=== PATIENT | female | born 1995 | race Hispanic/Latino ===

== ENCOUNTER 2018-12-23 05:36 | Inpatient (IN) | payer SELFPAY ==
[2018-12-23] MEDS ORDERED: Ringers Lactate 1,000 ML IV PRN (06:34)
[2018-12-23] MEDS ORDERED: CEFAZOLIN/SWI 2gm 2 GM/20 ML SYR ONE (06:40)
[2018-12-23] MEDS ORDERED: Ringers Lactate 1,000 ML IV SCH (07:00)
[2018-12-23] MEDS ORDERED: CEFAZOLIN 2 GM in NA CHLORIDE 0.9% 100 ML IVPB SCH (07:00)
[2018-12-23] MEDS ORDERED: METOCLOPRAMIDE 10 MG/2mL INJ ONE (07:01)
[2018-12-23] MEDS ORDERED: FAMOTIDINE 20 MG/2 ML VIAL IV ONE (07:01)
[2018-12-23] MEDS ORDERED: NA CIT/CITRIC AC 30 ML ORAL UDC ONE (07:01)
[2018-12-23] MEDS ORDERED: CARBOPROST TROME 250 MCG/ML IM ONE (07:03)
[2018-12-23] MEDS ORDERED: METHYLERGONOVINE 0.2MG/ML AMP IM ONE (07:03)
[2018-12-23] MEDS ORDERED: D10W 250 ML IV ONE (07:11)
[2018-12-23 07:16] LABS: Absolute Lymphocytes (CBC) 1.8 K/uL (0.7-4.9); Basophils % 0.1 % (0-1.3); Hematocrit 31.8 % (36.0-45.0); Lymphocytes % 20.3 % (15.3-44.8); MPV 8.3 fL (7.6-11.3); RBC Red Blood Cell Count 4.21 M/uL (3.86-4.86)
[2018-12-23] MEDS ORDERED: MORPHINE SULFATE/PF 1 MG/ML (10 ML AMP) ONE (07:17)
[2018-12-23] MEDS ORDERED: OXYTOCIN 10 UNIT/ML ML IV ONE ×2 (07:20→08:10)
[2018-12-23] MEDS ORDERED: EPHEDRINE SULF 50 MG/ML VIAL ONE (07:36)
[2018-12-23] MEDS ORDERED: Phenylephrine HCl 10 MG/ML 1 ML VIAL ONE (07:58)
[2018-12-23] MEDS ORDERED: DIPHENHYDRAMINE 25 MG TAB/CAP PO PRN (08:24)
[2018-12-23] MEDS ORDERED: BISACODYL 10 MG RECTAL SUPP RECT PRN (08:24)
[2018-12-23] MEDS ORDERED: ONDANSETRON 4 MG/2 ML VIAL IV PRN (08:24)
[2018-12-23] MEDS ORDERED: KETOROLAC 30 MG/ML INJ IM PRN (08:24)
[2018-12-23] MEDS ORDERED: ACETAMINOPHEN 500 MG TAB PO PRN ×2 (08:24)
[2018-12-23] MEDS ORDERED: ONDANSETRON 4 MG (ODT) TAB PO PRN (08:24)
[2018-12-23] MEDS ORDERED: Oxycodone HCl/Acetaminophen 1 TAB TAB PO PRN (08:24)
[2018-12-23] MEDS: OXYTOCIN/LR 20 UNIT/1,000 ML BAG IV SCH ×2 (09:00→20:00)
--- NOTE | 2018-12-23 09:09 | RAD REPORT ---
EXAM DESCRIPTION: RAD - Abdomen 1 View (KUB) - 12/23/2018 6:51 am CLINICAL HISTORY: FINDINGS: The head is present within the left lower abdomen/upper pelvis The legs are present within the right lower abdomen/upper pelvis. Neither is clearly the presenting part. The spine extends left right within the mid abdomen. The presentation is considered transverse
[2018-12-23] MEDS ORDERED: CEFAZOLIN/SWI 2gm 2 GM/20 ML SYR IV ONE (09:38)
[2018-12-23] MEDS: KETOROLAC 30 MG/ML INJ IV PRN ×2 (10:45→18:01)
[2018-12-23] MEDS ORDERED: Ringers Lactate 1,000 ML IV ONE ×4 (11:10→16:30)
[2018-12-23 11:14] VITALS: BMI 32.5
[2018-12-23] MEDS: D5LR 1,000 ML with OXYTOCIN 20 UNIT IV SCH ×2 (14:33)
[2018-12-23] MEDS ORDERED: PROMETHAZINE 25 MG/ML VIAL ONE (14:44)
[2018-12-23] MEDS ORDERED: PROMETHAZINE HCL 50 MG/ML AMP IM ONE (17:00)
[2018-12-24] MEDS: Oxycodone HCl/Acetaminophen 1 TAB TAB PO PRN ×2 (00:03→11:12)
[2018-12-24] MEDS: D5LR 1,000 ML with OXYTOCIN 20 UNIT IV SCH ×2 (03:35)
[2018-12-24] MEDS: KETOROLAC 30 MG/ML INJ IV PRN (06:35)
[2018-12-24] MEDS ORDERED: MAGNESIUM HYDROXIDE 8% 30 ML PO PRN (08:24)
--- NOTE | 2018-12-24 08:24 | OP ---
Surgeon: Louis Osorio MD [employer] Worker: Dr. Christopher Tomlinson. Anesthesiologist: Dr. Holliday. Indications: A 23-year-old 3, para 2, 33 weeks 5 days. Patient in the [place] came into our institution in advanced labor, protruding membranes 8.5 to 9 cm. X-ray showed baby in transverse lie . Full discussion with patient and family. They decided to proceed with section. Pediatrics: Dr. Tobias. [facility] transport team, which is available within minutes after of the ba by. Full preoperative counseling concerning procedure and possible complications including infection, blo od loss, anesthetic complications, injury to bladder, bowel, or ureter, postoperative complications, clots in legs, pneumonia. The patient knows fully well this does not constitute all the possible pro blems that could occur during or following surgery. Description Of Procedure: After adequate spinal block anesthesia, a time-out was performed. A Pfann enstiel incision was created. The incision was carried to the fascia. The fascia was incised and in cision carried transversely bilaterally. Anterior and posterior fascial planes were developed with b oth blunt and sharp dissection. Rectus muscle was . Peritoneum elevated and entered. Low transverse bladder flap developed with Metzenbaum scissors. Low transverse uterine incision created. The baby's head was on the left, the posterior portion to the right. The feet were grasped, but it was impossible to remove the baby from this position. Therefore, a vertical incision approximately 4-5 cm was created in the midportion of the upper transverse incision. At this point, a 5-pound 6-ou nce male was delivered. Apgars 3, 7, and 9. Cord blood was obtained. Placenta removed manua lly. Uterus cleared of clot and blood and exteriorized. Vertical defect closed with a running kana d stitch of 1 chromic followed by a single [id number] stitch for complete hemostasis. The trans verse incision was closed with 1 chromic running locked stitch. Estimated blood loss 800 cc during t he procedure. Gutters cleared of clot and blood. Uterus replaced in the peritoneal cavity. Suture lines checked, all intact, no further bleeding. Muscles were closed with 0 Vicryl four interrupted s utures. The fascia was closed with 1 Vicryl running from either angle to the midline. Subcutaneous tissue closed with 2-0 plain. Absorbable sadie placed and then metal sadie. Patient was given 2 g of Ancef for prophylaxis. Tolerated all procedures well. Transferred back to her room in good co ndition. Final Diagnosis: Intrauterine gestation 33 weeks 5 days, premature labor, transverse lie, primary ce sarean section, spinal block anesthesia. MARGIE/EDMOND Voice ID: [id number] Report ID: [id number]
--- NOTE | 2018-12-24 08:24 | PREOPHP ---
Date of Admission: 12/23/2018 A 23-year-old, 3, para 2, followed in the [place], 33 weeks and 5 days by best estimates. Hazel lozano was told she had polyhydramnios, came into our institution reporting contractions. She has 8 to 9 cm bulging bag of hernández, but the presenting part cannot be determined. FHTs look normal. Vital signs are all good we are getting a flatplate of the abdomen and IV has been started. She is A posit jonny. Tdap has been given. Rubella immune. No other labs available on her record. I have counseled the patient if the baby is breech or transverse we will need to do a if we have t jayce. She knows if the bag of water breaks, things would become more difficult especially if we get a prolapsed cord. The patient's seemed to understand the situation and seemed to be amenable to whatever treatment we suggest. We will draw all drop in labs, type and screen the patient. IV caicedo s been started and we will start the process of moving towards delivery. MARGIE/EDMOND Voice ID: [id number]
--- NOTE | 2018-12-24 08:28 | PN ---
Postoperatively, patient has done quite well. Output is very good. Vital signs are all stable. The patient is alert this morning. Full discussion about her surgery, transverse lie and the necessity of a vertical incision along with the transverse uterine incision. She knows in the future that she needs to have sections, this has been discussed with the patient now at least twice. Baby i s in [place], apparently doing quite well on just oxygen under the [place]. We will discontinue Serna a nd IV. Begin ambulation. She has had no postoperative problems at this point. Rh positive, immune to Rubella. If all goes well, we will dismiss the patient tomorrow. She is to return to my office i n 1 week for followup. Full dismissal instructions given but we will go over those again tomorrow. MARGIE/EDMOND Voice ID: [id number] Report ID: [id number]
[2018-12-24] MEDS: IBUPROFEN 200 MG TAB PO PRN (15:52)
[2018-12-24 21:37] LABS: RPR (Rapid Plasma Reagin) NON-REACT (NON-REACT)
[2018-12-25] MEDS: IBUPROFEN 200 MG TAB PO PRN (01:09)
[2018-12-25 07:38] VITALS: BP 120/73; TEMP 98.2
[2018-12-25 19:15] LABS: HBsAG Nonreactive (Nonreactive)
--- NOTE | 2018-12-26 08:02 | DS ---
Date of Discharge: 12/25/2018 This 23-year-old, 3, para 2, 33 weeks 5 days, followed in the [place] without apparent complic ations other than noted to have polyhydramnios with her last visit, came into our institution in adva nced labor, noted to be 8.5 to 9 cm with bulging membranes. Presenting part could not be felt. X-ra y demonstrated transverse lie. After discussion with patient's family it was decided to proceed with surgery. Full preoperative counseling concerning procedures and possible complications, including i nfection, blood loss, anesthetic complications, injury to bladder, bowel, ureter, postoperative compl ications, clots in legs, pneumonia. The patient knows fully well, this does not constitute all the p ossible problems that could occur during or following the surgery. Under spinal block anesthesia aft er a time out, a 5 pound, 6 ounce male was delivered through a transverse incision t hat was necessary to have a midline upper incision, vertical extension of about 5 cm. Apgars ___. Estimated blood loss 800 cc. Repair of the incision with 1 chromic vertically and then transver se repair. 2 g of Ancef given pre and postop for prophylaxis. Baby was transported to [facility], is now off oxygen and apparently doing quite well. The patient has had her Tdap immunizat ion. She has no post spinal block problems. She will be dismissed this morning to return in offi ce next week for followup, to report any temperature elevation of 100 degrees or greater, severe pain , heavy bleeding, or any other type of abnormalities. Dismissed with tramadol for analgesia although she may like to take Motrin instead. She is Rh positive, immune to rubella. Final Diagnoses: Intrauterine gestation 33 weeks 5 days, premature labor. Transverse lie. Primary section. Spinal block anesthesia. MARGIE/EDMOND Voice ID: [id number] Report ID: [id number]
== END 2018-12-25 09:20 | disposition home or self-care (01) | DRG 788 ==
LOC: L&D 05:36 → 2ND-WC 06:21
PROVIDERS: ADMIT Specialist; ATTEND Specialist
PROC: 10D00Z1 Extraction of Products of Conception, Low, Open Approach (ICD-10-PCS; principal; 2018-12-23 07:43)
DX: O60.14X0 Preterm labor third trimester with preterm delivery third trimester, not applicable or unspecified (principal); O32.2XX0 Maternal care for transverse and oblique lie, not applicable or unspecified; O40.3XX0 Polyhydramnios, third trimester, not applicable or unspecified; Z3A.33 33 weeks gestation of pregnancy; Z37.0 Single live birth
CPT/HCPCS: 36415; 74018; 85014; 85025; 86592; 86850; 86900; 86901; 87340; 88307; J0690; J2210; J2370; J2405; J2550; J2590; J2765